=== PATIENT | female | born 1985 | race Caucasian/White ===

== ENCOUNTER 2017-03-05 01:13 | Emergency (ER) | payer SELFPAY ==
--- NOTE | 2017-03-05 01:42 | ED Physician Documentation ---
Upper Back Injury/Pain - HISTORIAN Historian: patient - [facility] Chief Complaint: Upper Back Injury/ Pain Onset: days ago (2) Duration: continues in ED Recent Injury: No Severity: moderate Quality: sharp Associated Symptoms: denies: fever, chills, sweating, headache, chest pain, weakness Exacerbated By: denies: nothing Relieved By: denies: nothing Further Comments: yes (Reports mid back pain for several days - getting worse. Acts nervous and jittery. Please see nursing notes about patient's lies about her purse.) - ROS NEURO/PSYCH: denies: difficulty with speech EYES/ENT: denies: none CVS/RESP: denies: none CONST: denies: no problems GI/: nausea, vomiting (Reports "can't keep anything down." But when I say her spec grav is 1015 so she is doing well keeping hydrated she says "I've been guzzling water all day."), problems urinating (dysuria) MS/SKIN/LYMPH: denies: none - PAST HX Past History: denies: arthritis, compression fracture(s), back injury Cardiac Risk Factors: denies: cardiac disease Surgeries/Procedures: other (BTL) Immunizations: UTD Allergies/Adverse Reactions: Allergies Allergy/AdvReac Type Severity Reaction Status Date / Time No Known Allergies Allergy Verified 03/05/17 01:32 Home Medications: Ambulatory Orders Medication Instructions Recorded Sulfamethoxazole/Trimethoprim 1 each PO BID #10 tab 03/05/17 [Bactrim Ds] - SOCIAL HX Smoking History: greater than 1 pack/day Alcohol Use: none Drug Use: none (UDS + meth, marijuana, and benzos) - FAMILY HX Family History: none - VITAL SIGNS Vital Signs: Vital Signs Temp Pulse Resp BP Pulse Ox 83 16 149/89 97 03/05/17 01:20 03/05/17 01:20 03/05/17 01:20 03/05/17 01:20 - REVIEWED ASSESSMENTS Nursing Assessment Reviewed: Yes Vitals Reviewed: Yes Progress - Progress Progress: Urine shows + blood, protein, WBC's. ED Results Lab/Radiology - Orders Orders: ED Orders Category Date Time Status Ondansetron HCl Rapdis [Zofran Odt] Med 03/05/17 01:45 Once 4 mg PO NOW ONE Ondansetron HCl Rapdis [Zofran Odt] Med 03/05/17 01:46 Once 4 mg PO NOW ONE Sulfamethoxazole/Trimethoprim [Bactrim Ds] Med 03/05/17 01:45 Once 1 each PO NOW ONE Sulfamethoxazole/Trimethoprim [Bactrim Ds] Med 03/05/17 01:45 Once 1 each PO NOW ONE Upper Back Injury Physical Ex - Physical Exam General Appearance: no acute distress EENT: nml ENT inspection Neck: nml inspection Back: painless ROM, other (Diffusely mildly tender to minimal palpation. No spasm noted.). No: vertebral point-tendernes, CVA tenderness, muscle spasm Respiratory: chest non-tender, breath sounds nml, tenderness CVS: heart sounds nml Abdomen: non-tender Neuro/Psych: oriented x3, CN's nml as tested, sensation nml, motor nml, winding operator nml, reflexes nml Discharge Clincal Impression: UTI (urinary tract infection) Prescriptions: Sulfamethoxazole/Trimethoprim [Bactrim Ds] 1 each PO BID #10 tab Condition: Good Disposition: 01 HOME, SELF-CARE Decision to Admit: NO Decision Time: 02:00
[2017-03-05] MEDS ORDERED: SULFAMETHOXAZOLE/TRIMETHOPRIM 1 EACH TABLET PO ONE ×2 (01:45)
[2017-03-05] MEDS ORDERED: ONDANSETRON HCL 4 MG TAB.RAPDIS PO ONE ×2 (01:45→01:46)
[2017-03-05 01:59] VITALS: BP 136/74
[2017-03-05 14:53] LABS: APPEARANCE,URINE CLEAR (CLEAR); COLOR,URINE YELLOW (YELLOW); OCCULT BLOOD,URINE TRACE-INTACT (NEGATIVE); PH URINE >=9.0 (5.0 - 8.0)
[2017-03-05 14:54] LABS: CANNABINOIDS NON NEGATIVE ng/mL (< 50); METHYLENEDIOXYMETHAMPHETAMINE NEGATIVE ng/mL (<500)
== END 2017-03-05 01:52 | disposition home or self-care (01) ==
LOC: ED 01:13
DX: N39.0 Urinary tract infection, site not specified (principal)
CPT/HCPCS: 80377; 81002; A9270; 99283; G0481

== ENCOUNTER 2017-06-26 20:32 | Emergency (ER) | payer SELFPAY | END 2017-06-26 20:45 | LOC: ED 20:32 | DX: Z02.89 Encounter for other administrative examinations (principal) | CPT/HCPCS: 99281 ==

== ENCOUNTER 2017-07-19 04:18 | Emergency (ER) | payer SELFPAY ==
[2017-07-19] MEDS ORDERED: 0.9 % SODIUM CHLORIDE 1,000 ML IV ONE (04:32)
[2017-07-19] MEDS ORDERED: KETOROLAC TROMETHAMINE 30 MG/1ML VIAL IVP ONE (04:32)
[2017-07-19] MEDS ORDERED: fentaNYL CITRATE/PF 100 MCG/ 2ML AMP IVP ONE ×2 (04:32→05:31)
[2017-07-19] MEDS ORDERED: ONDANSETRON HCL/PF 4 MG/ 2ML VIAL IVP ONE (04:33)
[2017-07-19] MEDS ORDERED: TAMSULOSIN HCL 0.4 MG CAP.ER.24H PO ONE (05:31)
--- NOTE | 2017-07-19 05:38 | Diagnostic Imaging Report ---
AARON GUERRA (BELLY DUMP DRIVER) - ER [facility] [id number] [facility] [address] [place], [place]. [address] Report Submission Date: July 19, 2017 5:17:45 AM CDT Patient Study Name: RONALDO SERRATO Date: July 19, 2017 4:46:58 AM CDT Modality Type: CT\SR Gender: F Description: CT ABD PELVIS W/O CO : 83 Institution: [facility] Physician: AARON GUERRA (BELLY DUMP DRIVER) - ER CT abdomen and pelvis without contrast CLINICAL HISTORY: Lt side flank pain, Hx of stones (Hx) / Lt side flank pain, Hx of stones (DICOM Hx) TECHNIQUE: 5 mm contiguous axial images of the abdomen and pelvis non contrast. FINDINGS: The lung bases are clear. Abdomen: The liver, pancreas and spleen are normal in appearance. The gallbladder is unremarkable. Left hydronephrosis and hydroureter secondary to a a 7 mm proximal left ureteral calculus. The left kidney slightly inhomogeneous and pyelonephritis is not excluded. Additional left lower pole calyceal stones are noted measuring 2 to 3 mm. 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 The aorta is normal in caliber. The small bowel is nondistended. There is no evidence of free air or free fluid. Pelvis: The colon is normal in appearance. The distal ureters and bladder are normal in appearance. There is no evidence of distal ureteral or intravesicular calculi. . There is no evidence of free air or free fluid. The sigmoid colon and rectum are normal. The remaining pelvic structures are within normal limits and the bones of the pelvis are intact. IMPRESSION: 1. Left hydronephrosis and tarsal hydroureter secondary to a 7 mm proximal left ureter calculus. Left kidney appears slightly inhomogeneous and pyelonephritis is not excluded. Correlation with urinalysis recommended. 2. Additional nonobstructing left lower pole calyceal stones with bilateral medullary calcifications. Electronically signed on July 19, 2017 5:17:45 AM CDT by: Flaco ROBERTS
[2017-07-19 05:45] LABS: BASOPHILS % 0.6 (0.0-1.5); EOSINOPHILS % 2.2 % (0.0-6.8); MEAN CORPUSCULAR HEMOGLOBIN 27.4 pg (28.0-34.0); MEAN CORPUSCULAR VOLUME 85.9 fl (80.0-100.0); MONOCYTES % 4.4 % (0.0-11.0); NEUTROPHILS # 6.6 # k/uL (1.4-7.7)
[2017-07-19 05:46] VITALS: BP 168/98
[2017-07-19 05:58] LABS: eGFR (African) > 60; eGFR (Non-African) > 60
[2017-07-19] MEDS ORDERED: HYDROmorphone HCL/PF 1 MG/ML DISP.SYRIN IVP ONE (06:04)
[2017-07-19] MEDS ORDERED: cefTRIAXone SODIUM 1 GM in 0.9 % SODIUM CHLORIDE 100 ML IV ONE (06:05)
[2017-07-19] MEDS ORDERED: HYDROmorphone HCL/PF 2 MG/ML DISP.SYRIN ONE (06:07)
[2017-07-19] MEDS ORDERED: cefTRIAXone SODIUM 1 GM VIAL ONE (06:07)
--- NOTE | 2017-07-19 06:24 | ED Physician Documentation ---
Flank Pain - HPI Stated Complaint: Left flank pain Chief Complaint: Flank Pain Onset: hours (around 3:30-4:00 am) Duration: worse Timing: worse Context: denies: out of country travel, bad food, recent trauma Severity: severe Quality: pain Associated Symptoms: back pain (left flank) Exacerbated by: movements, upright position, walking Relieved by: nothing Further Comments: yes (31 year old female patient presents with complaint of severe left flank pain which started about 30 minutes ago. Patient reports history of renal calculi. Has had 3 procedures to remove stones; last one in [facility]. Does not have local urologist.) - ROS CONST: no problems GI/: none CVS/RESP: none EYES/ENT: none MS/SKIN/LYMPH: none NEURO/PSYCH: none - SOCIAL HX Smoking History: cigarettes - FAMILY HX Family History: denies: none - PAST HX Past History: kidney stones Ischemic Bowel Risk Factors: none Medications: see nurse note Allergies: NKDA, see nurses note - VITAL SIGNS Vital Signs: Vital Signs Temp Pulse Resp BP Pulse Ox 98.4 F 102 H 16 168/98 95 07/19/17 05:44 07/19/17 04:20 07/19/17 05:44 07/19/17 05:44 07/19/17 05:44 - REVIEWED ASSESSMENTS Nursing Assessment Reviewed: Yes Vitals Reviewed: Yes Progress - Progress Progress: Difficulty controlling patient's pain. Multiple doses of fentanyl IV, toradol and flomax given. 0615 Pain returning - medicated with Dilaudid IV Call to [facility] for urology consult, spoke with Dr Babin, will see patient in the office at 0900 this morning. Explained plan of care to patient, will need city route driver. ED Results Lab/Radiology - Lab Results Lab Results: Lab Results 07/19/17 07/19/17 05:20 05:20 WBC 10.20 K/ul K/ul (4.00-12.00) RBC 4.80 M/ul M/ul (3.90-5.20) Hgb 13.1 g/dL g/dL (12.0-16.0) Hct 41.2 % % (34.5-46.5) MCV 85.9 fl fl (80.0-100.0) MCH 27.4 pg L pg (28.0-34.0) MCHC 31.9 g/dL g/dL (30.0-36.0) RDW 14.0 % % (11.3-14.3) Plt Count 435 K/mm3 H K/mm3 (130-400) Neut % (Auto) 64.4 % % (39.0-79.0) Lymph % (Auto) 27.3 % % (16.0-50.0) [place] % (Auto) 4.4 % % (0.0-11.0) Eos % (Auto) 2.2 % % (0.0-6.8) Baso % (Auto) 0.6 (0.0-1.5) Neut # (Auto) 6.6 # k/uL # k/uL (1.4-7.7) Lymph # (Auto) 2.8 # k/uL # k/uL (0.6-4.0) [place] # (Auto) 0.4 # k/uL # k/uL (0.0-0.9) Eos # (Auto) 0.2 # k/uL # k/uL (0.0-0.6) Baso # (Auto) 0.1 # k/uL # k/uL (0.0-0.5) Reactive Lymphs % 1.1 % % (0.0-5.0) Reactive Lymphs # 0.1 # k/uL # k/uL (0.0-0.8) Sodium 142 mmol/L mmol/L (136-145) Potassium 3.8 mmol/L mmol/L (3.5-5.1) Chloride 105 mmol/L mmol/L (98-107) Carbon Dioxide 21 mmol/L L mmol/L (22-30) BUN 10 mg/dL mg/dL (7-17) Creatinine 0.70 mg/dL mg/dL (0.52-1.04) Estimated Creat Clear 134 Est GFR ( Amer) > 60 (60 - ) Est GFR (Non-Af Amer) > 60 (60 - ) Glucose 109 mg/dL H mg/dL (74-106) Calcium 10.0 mg/dL mg/dL (8.4-10.2) Total Bilirubin 0.5 mg/dL mg/dL (0.2-1.3) AST 16 U/L U/L (15-46) ALT 22 U/L U/L (13-69) Alkaline Phosphatase 113 U/L U/L (38-126) Total Protein 7.7 g/dL g/dL (6.3-8.2) Albumin 4.6 g/dL g/dL (3.5-5.0) - Radiology Radiology Impressions: TECHNIQUE: 5 mm contiguous axial images of the abdomen and pelvis non contrast. FINDINGS: The lung bases are clear. Abdomen: The liver, pancreas and spleen are normal in appearance. The gallbladder is unremarkable. Left hydronephrosis and hydroureter secondary to a a 7 mm proximal left ureteral calculus. The left kidney slightly inhomogeneous and pyelonephritis is not excluded. Additional left lower pole calyceal stones are noted measuring 2 to 3 mm. 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 The aorta is normal in caliber. The small bowel is nondistended. There is no evidence of free air or free fluid. Pelvis: The colon is normal in appearance. The distal ureters and bladder are normal in appearance. There is no evidence of distal ureteral or intravesicular calculi. . There is no evidence of free air or free fluid. The sigmoid colon and rectum are normal. The remaining pelvic structures are within normal limits and the bones of the pelvis are intact. IMPRESSION: 1. Left hydronephrosis and tarsal hydroureter secondary to a 7 mm proximal left ureter calculus. Left kidney appears slightly inhomogeneous and pyelonephritis is not excluded. Correlation with urinalysis recommended. 2. Additional nonobstructing left lower pole calyceal stones with bilateral medullary calcifications. Electronically signed on July 19, 2017 5:17:45 AM CDT by: Flaco Espinoza - Orders Orders: ED Orders Category Date Time Status Place IV Lock 1T Care 07/19/17 04:32 Active RENAL STONE PROTOCOL [CT ABD & PELVIS W/O CON] Stat Exams 07/19/17 Completed CBC/PLATELET/DIFF Stat Lab 07/19/17 05:20 Completed CMP Stat Lab 07/19/17 05:20 Completed UA W MICRO [UA W/MICRO IF INDICATED] Routine Lab 07/19/17 04:34 Ordered 0.9 % Sodium Chloride [Normal Saline] 1,000 ml Med 07/19/17 04:32 Discontinued IV Q1H HYDROmorphone HCL/PF [Dilaudid] Med 07/19/17 06:04 Discontinued 1 mg IVP NOW ONE HYDROmorphone HCL/PF [Dilaudid] Med 07/19/17 06:07 Discontinued 2 mg .ROUTE .STK-MED ONE Ketorolac Tromethamine [Toradol] Med 07/19/17 04:32 Discontinued 30 mg IVP NOW ONE Ondansetron HCl/Pf [Zofran 4 mg/2 ml] Med 07/19/17 04:33 Discontinued 4 mg IVP NOW ONE Tamsulosin HCl [Flomax] Med 07/19/17 05:31 Discontinued 0.4 mg PO NOW ONE cefTRIAXone SODIUM [Rocephin] Med 07/19/17 06:07 Discontinued 1 gm .ROUTE .STK-MED ONE cefTRIAXone SODIUM [Rocephin] 1 gm Med 07/19/17 06:05 Active 0.9 % Sodium Chloride [Sodium Chloride] 100 ml IV NOW fentaNYL CITRATE/PF [Duragesic] Med 07/19/17 04:32 Discontinued 50 mcg IVP NOW ONE fentaNYL CITRATE/PF [Duragesic] Med 07/19/17 05:31 Discontinued 50 mcg IVP NOW ONE Abdominal Pain Physical Exam - Physical Exam General Appearance: severe distress EENT: eye inspection normal, ENT inspection normal, pharynx normal, no signs of dehydration, SALMA, no nystagmus, TM's nml RESPIRATORY: no resp distress, chest non-tender, breath sounds normal CVS: reg rate & rhythm, heart sounds normal, equal pulses, no murmur, no gallop , PMI nml, no JVD, no friction rub, 24 ABDOMEN: soft, no organomegaly, normal bowel sounds, no abdominal bruit, no distension BACK: CVA tenderness (L) SKIN: normal color, warm/dry, NR, INT, PAL, DR EXTREMITIES: non-tender, normal range of motion, no evidence of injury, no edema , J, TEST ENGINEERING TECHNICIAN NEURO: oriented X3, CN's nml as tested, motor nml, sensation nml Vital Signs: Vital Signs Temp Pulse Resp BP Pulse Ox 98.4 F 102 H 16 168/98 95 07/19/17 05:44 07/19/17 04:20 07/19/17 05:44 07/19/17 05:44 07/19/17 05:44 Discharge Clincal Impression: Left ureteral calculus, Pyelonephritis Prescriptions: Ciprofloxacin HCl [Cipro] 500 mg PO BID #20 tablet Referrals: Puma Babin MD [REFERRING] - (Today at 9:00 am) Additional Instructions: Follow up appointment this morning at 9:00am Dr Babin - [facility] Address: [address] [place] [address] Do not eat or drink anything before you appointment. Increase your fluid intake to at least 64 oz of water a day after seeing the urologist Strain all urine. If the stone is passed, place it in a specimen cup and take it to your primary care physician for analysis. corrections unit supervisor your antibiotic and start it today. They were e-scribed to [facility] in [place]. Condition: Stable Disposition: 01 HOME, SELF-CARE Decision to Admit: NO Decision Time: 06:27
[2017-07-19] MEDS ORDERED: HYDROcodone /APAP 5/325 1 EACH TABLET PO ONE (06:28)
[2017-07-19 07:42] LABS: APPEARANCE,URINE CLOUDY (CLEAR); COLOR,URINE YELLOW (YELLOW); OCCULT BLOOD,URINE 3+ (NEGATIVE); PH URINE 5.5 (5.0 - 8.0); UROBILINOGEN URINE 0.2 Eu (0.2-1.0)
[2017-07-19 07:43] LABS: URINE HCG NEGATIVE (NEGATIVE)
== END 2017-07-19 08:37 | disposition home or self-care (01) ==
LOC: ED 04:18
DX: N20.1 Calculus of ureter (principal); N10 Acute pyelonephritis
CPT/HCPCS: 74176; 80053; 81002; 81025; 85025; J0696; J1170; J1885; J2405; J3010; J7030; 96360; 96365; 96374; 96375; 96376; 99284; S1016